=== PATIENT | female | born 1980 | race Caucasian/White ===

== ENCOUNTER → 2019-08-19 09:35 | Outpatient (CLI) | payer BC, SELFPAY ==
[2019-08-19 10:47] LABS: EXAGEN MAILED SPECIMEN
[2019-08-19 12:48] LABS: Color, Urine Yellow (Yellow); Glucose, Dipstick Normal (Normal); Ketone-Dipstick 5 mg/dl (Negative); Leukocyte Esterase-Dipstick 500 /ul (Negative); Nitrite-Dipstick Negative (Negative); Occult Blood-Urine Negative /ul (Negative); Protein-Dipstick 15 mg/dl (Negative); Urine Bilirubin Dipstick Negative (Negative); Urine Clarity Sl. Cloudy (Clear); Urine Urobilinogen Normal (Normal)
[2019-08-19 12:51] LABS: Absolute Lymphocyte Count 1.72 X10^3/uL (0.83-4.51); Absolute Neutrophil Count 5.3 X10^3/uL (2.0-7.7); Basophil# 0.03 X10^3/uL; Basophil% 0.4 % (0-1); Eosinophil# 0.09 X10^3/uL; Eosinophils% 1.2 % (0-5); Hematocrit 42.9 % (37-47); Hemoglobin 14.5 g/dL (12.0-15.0); Lymphocyte # 1.72 X10^3/ul (4.0); Lymphocyte % 22.3 % (19-41); Mean Corp Hgb Conc 33.8 g/dL (32-36); Mean Corpuscular Hgb 30.9 pg (27.0-32.0); Mean Corpuscular Volume 91.5 fL (81-99); Mean Platelet Vol. 10.2 fl (6.2-12.0); Monocyte# 0.49 X10^3/uL; Monocyte% 6.3 % (0-10); NRBC Flagged by Analyzer 0 % (0-5); Neutrophil # 5.33 X10^3/uL (2.7-7.7); Platelet Count 240 K/mm3 (150-450); RBC Distribution Width CV 12.1 % (11.6-14.6); RBC Distribution Width SD 40.3 fl (35.1-43.9); Red Blood Count 4.69 M/mm3 (4.2-5.4); White Blood Count 7.7 K/mm3 (4.4-11.0)
[2019-08-19 12:53] LABS: Protein, Urine (Random) 17.8 mg/dL (<11.9); Protein:Creat Ratio 56 mg/g CRE (0-200)
[2019-08-19 12:54] LABS: Erythrocyte Sedimentation Rate 4 mm/hr (0-20)
[2019-08-19 13:01] LABS: ALB/GLOB Ratio 1.2 RATIO (0.9-2.4); AST(SGOT) 16 U/L (15-37); Alanine Aminotransfer ALT/SGPT 36 U/L (13-56); Alkaline Phosphatase 68 U/L (45-117); Anion Gap 6 (5-15); BUN 12 mg/dL (7-18); BUN/Creat Ratio 15.4 RATIO (10-20); CRP < 2.90 mg/L (0.0-3.0); Calcium,Total 8.8 mg/dL (8.5-10.1); Chloride 106 mmol/L (98-107); Creatinine, Serum 0.78 mg/dL (0.55-1.02); EST Glomerular Filtration Rate 87 mL/min (>60); Est Glom Filt Rate - Afr Amer 105 mL/min (>60); Globulin 3.4 g/dL (2.2-4.2); Glucose 94 mg/dL (74-106); Potassium 4.1 mmol/L (3.5-5.1); Protein, Total 7.4 g/dL (6.4-8.2); Sodium Level 139 mmol/L (136-145)
[2019-08-19 16:25] LABS: Hepatitis B Surface Antibody Non-Reactive; Hepatitis B Surface Antigen Non-Reactive (Nonreactive); Hepatitis C Antibody Non-Reactive (Nonreactive)
== END ==
PROVIDERS: Family Provider Student in an Organized Health Care Education/Training Program; PCP Student in an Organized Health Care Education/Training Program; Referring Provider Internal Medicine Rheumatology; Visit Provider Internal Medicine Rheumatology
DX: M06.4 Inflammatory polyarthropathy (principal); R76.8 Other specified abnormal immunological findings in serum; G43.909 Migraine, unspecified, not intractable, without status migrainosus
CPT/HCPCS: 36415; 80053; 81002; 82570; 84156; 85025; 85652; 86140; 86706; 86803; 87340

== ENCOUNTER → 2019-11-25 | Outpatient (CLI) | payer BC, SELFPAY ==
[2019-11-25 15:40] LABS: Absolute Lymphocyte Count 1.66 X10^3/uL (0.83-4.51); Absolute Neutrophil Count 8.4 X10^3/uL (2.0-7.7); Basophil# 0.04 X10^3/uL; Basophil% 0.4 % (0-1); Eosinophil# 0.03 X10^3/uL; Eosinophils% 0.3 % (0-5); Hematocrit 42.4 % (37-47); Hemoglobin 14.3 g/dL (12.0-15.0); Lymphocyte # 1.66 X10^3/ul (4.0); Lymphocyte % 15.5 % (19-41); Mean Corp Hgb Conc 33.7 g/dL (32-36); Mean Corpuscular Hgb 30.6 pg (27.0-32.0); Mean Corpuscular Volume 90.8 fL (81-99); Mean Platelet Vol. 10.2 fl (6.2-12.0); Monocyte# 0.47 X10^3/uL; Monocyte% 4.4 % (0-10); NRBC Flagged by Analyzer 0 % (0-5); Neutrophil # 8.41 X10^3/uL (2.7-7.7); Neutrophil % 78.7 % (47-70); Platelet Count 313 K/mm3 (150-450); RBC Distribution Width CV 12.6 % (11.6-14.6); RBC Distribution Width SD 40.8 fl (35.1-43.9); Red Blood Count 4.67 M/mm3 (4.2-5.4); White Blood Count 10.7 K/mm3 (4.4-11.0)
[2019-11-25 16:02] LABS: ALB/GLOB Ratio 1.2 RATIO (0.9-2.4); AST(SGOT) 16 U/L (15-37); Alanine Aminotransfer ALT/SGPT 38 U/L (13-56); Albumin, Serum 4.2 g/dL (3.2-5.0); Alkaline Phosphatase 77 U/L (45-117); Anion Gap 9 (5-15); BUN 10 mg/dL (7-18); BUN/Creat Ratio 13.6 RATIO (10-20); Calcium,Total 9.1 mg/dL (8.5-10.1); Chloride 105 mmol/L (98-107); Creatinine, Serum 0.74 mg/dL (0.55-1.02); EST Glomerular Filtration Rate 92 mL/min (>60); Est Glom Filt Rate - Afr Amer 112 mL/min (>60); Globulin 3.6 g/dL (2.2-4.2); Glucose 88 mg/dL (74-106); Potassium 3.6 mmol/L (3.5-5.1); Protein, Total 7.8 g/dL (6.4-8.2); Sodium Level 137 mmol/L (136-145)
== END | disposition home or self-care (01) ==
LOC: MTLAB 12:54
PROVIDERS: PCP Student in an Organized Health Care Education/Training Program; Referring Provider Internal Medicine Rheumatology; Visit Provider Internal Medicine Rheumatology
DX: M05.79 Rheumatoid arthritis with rheumatoid factor of multiple sites without organ or systems involvement (principal); R76.8 Other specified abnormal immunological findings in serum; G43.909 Migraine, unspecified, not intractable, without status migrainosus; Z79.899 Other long term (current) drug therapy
CPT/HCPCS: 36415; 80053; 85025

== ENCOUNTER → 2020-02-02 | Outpatient (CLI) | payer BC, SELFPAY ==
[2020-02-02 18:09] LABS: Absolute Lymphocyte Count 2.17 X10^3/uL (0.83-4.51); Absolute Neutrophil Count 5.7 X10^3/uL (2.0-7.7); Basophil# 0.03 X10^3/uL; Basophil% 0.3 % (0-1); Eosinophil# 0.14 X10^3/uL; Eosinophils% 1.6 % (0-5); Hematocrit 39.5 % (37-47); Hemoglobin 13.2 g/dL (12.0-15.0); Lymphocyte # 2.17 X10^3/ul (4.0); Lymphocyte % 25.2 % (19-41); Mean Corp Hgb Conc 33.4 g/dL (32-36); Mean Corpuscular Hgb 31.1 pg (27.0-32.0); Mean Corpuscular Volume 92.9 fL (81-99); Mean Platelet Vol. 9.9 fl (6.2-12.0); Monocyte# 0.57 X10^3/uL; Monocyte% 6.6 % (0-10); NRBC Flagged by Analyzer 0 % (0-5); Neutrophil # 5.67 X10^3/uL (2.7-7.7); Platelet Count 289 K/mm3 (150-450); RBC Distribution Width CV 12.6 % (11.6-14.6); RBC Distribution Width SD 42.5 fl (35.1-43.9); Red Blood Count 4.25 M/mm3 (4.2-5.4); White Blood Count 8.6 K/mm3 (4.4-11.0)
[2020-02-02 18:57] LABS: ALB/GLOB Ratio 1.2 RATIO (0.9-2.4); AST(SGOT) 18 U/L (15-37); Alanine Aminotransfer ALT/SGPT 40 U/L (13-56); Albumin, Serum 3.9 g/dL (3.2-5.0); Alkaline Phosphatase 70 U/L (45-117); Anion Gap 6 (5-15); BUN 10 mg/dL (7-18); BUN/Creat Ratio 12.4 RATIO (10-20); Calcium,Total 8.8 mg/dL (8.5-10.1); Chloride 104 mmol/L (98-107); Creatinine, Serum 0.81 mg/dL (0.55-1.02); EST Glomerular Filtration Rate 83 mL/min (>60); Est Glom Filt Rate - Afr Amer 100 mL/min (>60); Globulin 3.2 g/dL (2.2-4.2); Glucose 92 mg/dL (74-106); Potassium 3.7 mmol/L (3.5-5.1); Protein, Total 7.1 g/dL (6.4-8.2); Sodium Level 139 mmol/L (136-145)
== END | disposition home or self-care (01) ==
PROVIDERS: PCP Student in an Organized Health Care Education/Training Program; Referring Provider Internal Medicine Rheumatology; Visit Provider Internal Medicine Rheumatology
DX: M05.79 Rheumatoid arthritis with rheumatoid factor of multiple sites without organ or systems involvement (principal); R76.8 Other specified abnormal immunological findings in serum; G43.909 Migraine, unspecified, not intractable, without status migrainosus; Z79.899 Other long term (current) drug therapy
CPT/HCPCS: 36415; 80053; 85025

== ENCOUNTER → 2020-04-02 | Outpatient (CLI) | payer BC, SELFPAY ==
[2020-04-02 17:42] LABS: Absolute Lymphocyte Count 2.18 X10^3/uL (0.83-4.51); Basophil# 0.03 X10^3/uL; Basophil% 0.4 % (0-1); Eosinophil# 0.09 X10^3/uL; Eosinophils% 1.1 % (0-5); Hematocrit 41.2 % (37-47); Hemoglobin 13.5 g/dL (12.0-15.0); Lymphocyte # 2.18 X10^3/ul (4.0); Lymphocyte % 27.3 % (19-41); Mean Corp Hgb Conc 32.8 g/dL (32-36); Mean Corpuscular Hgb 31.5 pg (27.0-32.0); Monocyte# 0.61 X10^3/uL; Monocyte% 7.6 % (0-10); NRBC Flagged by Analyzer 0 % (0-5); Neutrophil # 5.04 X10^3/uL (2.7-7.7); Neutrophil % 63.2 % (47-70); Platelet Count 298 K/mm3 (150-450); RBC Distribution Width CV 12.7 % (11.6-14.6); RBC Distribution Width SD 43.8 fl (35.1-43.9); Red Blood Count 4.29 M/mm3 (4.2-5.4)
[2020-04-02 18:33] LABS: ALB/GLOB Ratio 1.2 RATIO (0.9-2.4); AST(SGOT) 12 U/L (15-37); Alanine Aminotransfer ALT/SGPT 31 U/L (13-56); Albumin, Serum 3.9 g/dL (3.2-5.0); Alkaline Phosphatase 65 U/L (45-117); Anion Gap 4 (5-15); BUN 14 mg/dL (7-18); BUN/Creat Ratio 17.1 RATIO (10-20); Calcium,Total 8.3 mg/dL (8.5-10.1); Chloride 106 mmol/L (98-107); Creatinine, Serum 0.82 mg/dL (0.55-1.02); EST Glomerular Filtration Rate 81 mL/min (>60); Est Glom Filt Rate - Afr Amer 98 mL/min (>60); Globulin 3.2 g/dL (2.2-4.2); Glucose 79 mg/dL (74-106); Potassium 3.5 mmol/L (3.5-5.1); Protein, Total 7.1 g/dL (6.4-8.2); Sodium Level 138 mmol/L (136-145)
== END | disposition home or self-care (01) ==
LOC: MTLAB 16:35
PROVIDERS: PCP Student in an Organized Health Care Education/Training Program; Referring Provider Internal Medicine Rheumatology; Visit Provider Internal Medicine Rheumatology
DX: M05.79 Rheumatoid arthritis with rheumatoid factor of multiple sites without organ or systems involvement (principal); R76.8 Other specified abnormal immunological findings in serum; G43.909 Migraine, unspecified, not intractable, without status migrainosus; Z79.899 Other long term (current) drug therapy
CPT/HCPCS: 36415; 80053; 85025

== ENCOUNTER → 2020-06-02 | Outpatient (CLI) | payer BC, SELFPAY ==
[2020-06-02 16:19] LABS: Absolute Lymphocyte Count 1.75 X10^3/uL (0.83-4.51); Absolute Neutrophil Count 5.9 X10^3/uL (2.0-7.7); Basophil# 0.03 X10^3/uL; Basophil% 0.4 % (0-1); Eosinophil# 0.08 X10^3/uL; Hematocrit 40.2 % (37-47); Hemoglobin 13.5 g/dL (12.0-15.0); Lymphocyte # 1.75 X10^3/ul (4.0); Lymphocyte % 21.4 % (19-41); Mean Corp Hgb Conc 33.6 g/dL (32-36); Mean Corpuscular Hgb 31.7 pg (27.0-32.0); Mean Corpuscular Volume 94.4 fL (81-99); Mean Platelet Vol. 10.4 fl (6.2-12.0); Monocyte# 0.44 X10^3/uL; Monocyte% 5.4 % (0-10); NRBC Flagged by Analyzer 0 % (0-5); Neutrophil # 5.86 X10^3/uL (2.7-7.7); Neutrophil % 71.4 % (47-70); Platelet Count 365 K/mm3 (150-450); RBC Distribution Width CV 12.5 % (11.6-14.6); RBC Distribution Width SD 43.4 fl (35.1-43.9); Red Blood Count 4.26 M/mm3 (4.2-5.4); White Blood Count 8.2 K/mm3 (4.4-11.0)
[2020-06-02 16:45] LABS: ALB/GLOB Ratio 1.2 RATIO (0.9-2.4); AST(SGOT) 18 U/L (15-37); Alanine Aminotransfer ALT/SGPT 58 U/L (13-56); Albumin, Serum 3.8 g/dL (3.2-5.0); Alkaline Phosphatase 88 U/L (45-117); Anion Gap 5 (5-15); BUN 10 mg/dL (7-18); BUN/Creat Ratio 12.9 RATIO (10-20); Calcium,Total 8.8 mg/dL (8.5-10.1); Chloride 108 mmol/L (98-107); Creatinine, Serum 0.78 mg/dL (0.55-1.02); EST Glomerular Filtration Rate 86 mL/min (>60); Est Glom Filt Rate - Afr Amer 104 mL/min (>60); Globulin 3.2 g/dL (2.2-4.2); Glucose 118 mg/dL (74-106); Potassium 3.6 mmol/L (3.5-5.1); Sodium Level 139 mmol/L (136-145)
== END | disposition home or self-care (01) ==
LOC: MTLAB 11:46
PROVIDERS: PCP Student in an Organized Health Care Education/Training Program; Referring Provider Internal Medicine Rheumatology; Visit Provider Internal Medicine Rheumatology
DX: G43.909 Migraine, unspecified, not intractable, without status migrainosus (principal); R76.8 Other specified abnormal immunological findings in serum; M05.79 Rheumatoid arthritis with rheumatoid factor of multiple sites without organ or systems involvement; Z79.899 Other long term (current) drug therapy
CPT/HCPCS: 36415; 80053; 85025

== ENCOUNTER → 2020-06-30 | Outpatient (CLI) | payer BC, SELFPAY ==
[2020-06-30 15:36] LABS: ALB/GLOB Ratio 1.3 RATIO (0.9-2.4); AST(SGOT) 13 U/L (15-37); Alanine Aminotransfer ALT/SGPT 60 U/L (13-56); Alkaline Phosphatase 62 U/L (45-117); Anion Gap 6 (5-15); BUN 7 mg/dL (7-18); BUN/Creat Ratio 9.4 RATIO (10-20); Calcium,Total 8.9 mg/dL (8.5-10.1); Chloride 105 mmol/L (98-107); Creatinine, Serum 0.74 mg/dL (0.55-1.02); EST Glomerular Filtration Rate 91 mL/min (>60); Est Glom Filt Rate - Afr Amer 110 mL/min (>60); Globulin 3.1 g/dL (2.2-4.2); Glucose 84 mg/dL (74-106); Potassium 3.7 mmol/L (3.5-5.1); Protein, Total 7.1 g/dL (6.4-8.2); Sodium Level 139 mmol/L (136-145)
== END | disposition home or self-care (01) ==
LOC: MTLAB 12:13
PROVIDERS: PCP Student in an Organized Health Care Education/Training Program; Referring Provider Internal Medicine Rheumatology; Visit Provider Internal Medicine Rheumatology
DX: M05.79 Rheumatoid arthritis with rheumatoid factor of multiple sites without organ or systems involvement (principal); R76.8 Other specified abnormal immunological findings in serum; G43.909 Migraine, unspecified, not intractable, without status migrainosus; Z79.899 Other long term (current) drug therapy
CPT/HCPCS: 36415; 80053

== ENCOUNTER → 2020-09-13 11:53 | Outpatient (CLI) | payer BC, SELFPAY ==
[2020-09-13 15:23] LABS: Absolute Lymphocyte Count 1.58 X10^3/uL (0.83-4.51); Absolute Neutrophil Count 4.2 X10^3/uL (2.0-7.7); Basophil# 0.04 X10^3/uL; Basophil% 0.6 % (0-1); Eosinophil# 0.11 X10^3/uL; Eosinophils% 1.8 % (0-5); Hematocrit 41.1 % (37-47); Hemoglobin 13.2 g/dL (12.0-15.0); Lymphocyte # 1.58 X10^3/ul (4.0); Lymphocyte % 25.2 % (19-41); Mean Corp Hgb Conc 32.1 g/dL (32-36); Mean Corpuscular Hgb 29.2 pg (27.0-32.0); Mean Corpuscular Volume 90.9 fL (81-99); Mean Platelet Vol. 10.5 fl (6.2-12.0); Monocyte# 0.37 X10^3/uL; Monocyte% 5.9 % (0-10); NRBC Flagged by Analyzer 0 % (0-5); Neutrophil # 4.15 X10^3/uL (2.7-7.7); Neutrophil % 66.2 % (47-70); Platelet Count 266 K/mm3 (150-450); RBC Distribution Width CV 12.6 % (11.6-14.6); RBC Distribution Width SD 41.9 fl (35.1-43.9); Red Blood Count 4.52 M/mm3 (4.2-5.4); White Blood Count 6.3 K/mm3 (4.4-11.0)
[2020-09-13 16:15] LABS: ALB/GLOB Ratio 1.2 RATIO (0.9-2.4); AST(SGOT) 10 U/L (15-37); Alanine Aminotransfer ALT/SGPT 30 U/L (13-56); Albumin, Serum 3.8 g/dL (3.2-5.0); Alkaline Phosphatase 74 U/L (45-117); Anion Gap 6 (5-15); BUN 10 mg/dL (7-18); BUN/Creat Ratio 12.8 RATIO (10-20); Calcium,Total 8.9 mg/dL (8.5-10.1); Chloride 104 mmol/L (98-107); Creatinine, Serum 0.78 mg/dL (0.55-1.02); EST Glomerular Filtration Rate 86 mL/min (>60); Est Glom Filt Rate - Afr Amer 104 mL/min (>60); Globulin 3.2 g/dL (2.2-4.2); Glucose 93 mg/dL (74-106); Potassium 3.6 mmol/L (3.5-5.1); Sodium Level 138 mmol/L (136-145)
== END ==
PROVIDERS: PCP Student in an Organized Health Care Education/Training Program; Referring Provider Internal Medicine Rheumatology; Visit Provider Internal Medicine Rheumatology
DX: M05.70 Rheumatoid arthritis with rheumatoid factor of unspecified site without organ or systems involvement (principal); R76.8 Other specified abnormal immunological findings in serum; G43.909 Migraine, unspecified, not intractable, without status migrainosus; Z79.899 Other long term (current) drug therapy
CPT/HCPCS: 36415; 80053; 85025

== ENCOUNTER → 2020-11-10 16:45 | Outpatient (CLI) | payer BC, SELFPAY ==
[2020-11-10 17:46] LABS: Absolute Neutrophil Count 4.4 X10^3/uL (2.0-7.7); Basophil# 0.03 X10^3/uL; Basophil% 0.4 % (0-1); Eosinophil# 0.07 X10^3/uL; Hematocrit 39.4 % (37-47); Hemoglobin 12.5 g/dL (12.0-15.0); Lymphocyte % 27.6 % (19-41); Mean Corp Hgb Conc 31.7 g/dL (32-36); Mean Corpuscular Volume 91.4 fL (81-99); Mean Platelet Vol. 10.4 fl (6.2-12.0); Monocyte# 0.47 X10^3/uL; Monocyte% 6.8 % (0-10); NRBC Flagged by Analyzer 0 % (0-5); Neutrophil % 63.9 % (47-70); Platelet Count 309 K/mm3 (150-450); RBC Distribution Width CV 13.3 % (11.6-14.6); RBC Distribution Width SD 44.6 fl (35.1-43.9); Red Blood Count 4.31 M/mm3 (4.2-5.4); White Blood Count 6.9 K/mm3 (4.4-11.0)
[2020-11-10 18:43] LABS: ALB/GLOB Ratio 1.3 RATIO (0.9-2.4); AST(SGOT) 13 U/L (15-37); Alanine Aminotransfer ALT/SGPT 29 U/L (13-56); Albumin, Serum 4.1 g/dL (3.2-5.0); Alkaline Phosphatase 68 U/L (45-117); Anion Gap 6 (5-15); BUN 11 mg/dL (7-18); BUN/Creat Ratio 13.2 RATIO (10-20); Calcium,Total 8.6 mg/dL (8.5-10.1); Chloride 104 mmol/L (98-107); Creatinine, Serum 0.83 mg/dL (0.55-1.02); EST Glomerular Filtration Rate 79 mL/min (>60); Est Glom Filt Rate - Afr Amer 96 mL/min (>60); Globulin 3.1 g/dL (2.2-4.2); Glucose 94 mg/dL (74-106); Potassium 3.5 mmol/L (3.5-5.1); Protein, Total 7.2 g/dL (6.4-8.2); Sodium Level 139 mmol/L (136-145)
== END ==
PROVIDERS: PCP Student in an Organized Health Care Education/Training Program; Referring Provider Internal Medicine Rheumatology; Visit Provider Internal Medicine Rheumatology
DX: M05.70 Rheumatoid arthritis with rheumatoid factor of unspecified site without organ or systems involvement (principal); R76.8 Other specified abnormal immunological findings in serum; G43.909 Migraine, unspecified, not intractable, without status migrainosus; Z79.899 Other long term (current) drug therapy
CPT/HCPCS: 36415; 80053; 85025

== ENCOUNTER → 2021-02-09 15:03 | Outpatient (CLI) | payer BC, SELFPAY ==
[2021-02-09 17:39] LABS: Absolute Lymphocyte Count 1.68 X10^3/uL (0.83-4.51); Absolute Neutrophil Count 6.1 X10^3/uL (2.0-7.7); Basophil# 0.03 X10^3/uL; Basophil% 0.4 % (0-1); Eosinophil# 0.04 X10^3/uL; Eosinophils% 0.5 % (0-5); Hematocrit 35.7 % (37-47); Hemoglobin 11.5 g/dL (12.0-15.0); Lymphocyte # 1.68 X10^3/ul (0.83-4.51); Lymphocyte % 20.1 % (19-41); Mean Corp Hgb Conc 32.2 g/dL (32-36); Mean Corpuscular Hgb 28.5 pg (27.0-32.0); Mean Corpuscular Volume 88.6 fL (81-99); Mean Platelet Vol. 9.6 fl (6.2-12.0); Monocyte# 0.49 X10^3/uL; Monocyte% 5.9 % (0-10); NRBC Flagged by Analyzer 0 % (0-5); Neutrophil # 6.07 X10^3/uL (2.7-7.7); Neutrophil % 72.7 % (47-70); Platelet Count 312 K/mm3 (150-450); RBC Distribution Width CV 14.2 % (11.6-14.6); RBC Distribution Width SD 45.5 fl (35.1-43.9); Red Blood Count 4.03 M/mm3 (4.2-5.4); White Blood Count 8.3 K/mm3 (4.4-11.0)
[2021-02-09 17:54] LABS: ALB/GLOB Ratio 1.3 RATIO (0.9-2.4); AST(SGOT) 14 U/L (15-37); Alanine Aminotransfer ALT/SGPT 39 U/L (13-56); Alkaline Phosphatase 58 U/L (45-117); Anion Gap 5 (5-15); BUN 11 mg/dL (7-18); BUN/Creat Ratio 13.1 RATIO (10-20); Calcium,Total 8.6 mg/dL (8.5-10.1); Chloride 106 mmol/L (98-107); Creatinine, Serum 0.84 mg/dL (0.55-1.02); EST Glomerular Filtration Rate 79 mL/min (>60); Est Glom Filt Rate - Afr Amer 95 mL/min (>60); Globulin 3.1 g/dL (2.2-4.2); Glucose 90 mg/dL (74-106); Potassium 3.7 mmol/L (3.5-5.1); Protein, Total 7.1 g/dL (6.4-8.2); Sodium Level 139 mmol/L (136-145)
== END ==
PROVIDERS: PCP Student in an Organized Health Care Education/Training Program; Referring Provider Internal Medicine Rheumatology; Visit Provider Internal Medicine Rheumatology
DX: M05.70 Rheumatoid arthritis with rheumatoid factor of unspecified site without organ or systems involvement (principal); R76.8 Other specified abnormal immunological findings in serum; G43.909 Migraine, unspecified, not intractable, without status migrainosus; Z79.899 Other long term (current) drug therapy
CPT/HCPCS: 36415; 80053; 85025

== ENCOUNTER → 2021-05-10 08:24 | Outpatient (CLI) | payer BC, SELFPAY ==
[2021-05-10 09:59] LABS: Absolute Lymphocyte Count 1.31 X10^3/uL (0.83-4.51); Absolute Neutrophil Count 3.7 X10^3/uL (2.0-7.7); Basophil# 0.02 X10^3/uL; Basophil% 0.4 % (0-1); Eosinophil# 0.06 X10^3/uL; Eosinophils% 1.1 % (0-5); Hematocrit 42.1 % (37-47); Hemoglobin 13.4 g/dL (12.0-15.0); Lymphocyte # 1.31 X10^3/ul (0.83-4.51); Lymphocyte % 24.3 % (19-41); Mean Corp Hgb Conc 31.8 g/dL (32-36); Mean Corpuscular Volume 87.9 fL (81-99); Mean Platelet Vol. 10.2 fl (6.2-12.0); Monocyte# 0.32 X10^3/uL; Monocyte% 5.9 % (0-10); NRBC Flagged by Analyzer 0 % (0-5); Neutrophil # 3.66 X10^3/uL (2.7-7.7); Neutrophil % 67.7 % (47-70); Platelet Count 269 K/mm3 (150-450); RBC Distribution Width CV 15.2 % (11.6-14.6); Red Blood Count 4.79 M/mm3 (4.2-5.4); White Blood Count 5.4 K/mm3 (4.4-11.0)
[2021-05-10 10:19] LABS: ALB/GLOB Ratio 1.2 RATIO (0.9-2.4); AST(SGOT) 33 U/L (15-37); Alanine Aminotransfer ALT/SGPT 63 U/L (13-56); Alkaline Phosphatase 67 U/L (45-117); Anion Gap 4 (5-15); BUN 14 mg/dL (7-18); BUN/Creat Ratio 17.9 RATIO (10-20); Chloride 105 mmol/L (98-107); Creatinine, Serum 0.78 mg/dL (0.55-1.02); EST Glomerular Filtration Rate 85 mL/min (>60); Est Glom Filt Rate - Afr Amer 103 mL/min (>60); Globulin 3.3 g/dL (2.2-4.2); Glucose 112 mg/dL (74-106); Potassium 3.7 mmol/L (3.5-5.1); Protein, Total 7.3 g/dL (6.4-8.2); Sodium Level 137 mmol/L (136-145)
== END ==
PROVIDERS: PCP Student in an Organized Health Care Education/Training Program; Referring Provider Internal Medicine Rheumatology; Visit Provider Internal Medicine Rheumatology
DX: M05.70 Rheumatoid arthritis with rheumatoid factor of unspecified site without organ or systems involvement (principal); R76.8 Other specified abnormal immunological findings in serum; G43.909 Migraine, unspecified, not intractable, without status migrainosus; Z79.899 Other long term (current) drug therapy
CPT/HCPCS: 36415; 80053; 85025

== ENCOUNTER → 2021-06-14 12:46 | Outpatient (CLI) | payer BC, SELFPAY ==
[2021-06-14 15:58] LABS: AST(SGOT) 7 U/L (15-37); Alanine Aminotransfer ALT/SGPT 27 U/L (13-56); Albumin, Serum 3.6 g/dL (3.2-5.0); Alkaline Phosphatase 68 U/L (45-117); Anion Gap 9 (5-15); BUN 11 mg/dL (7-18); BUN/Creat Ratio 14.5 RATIO (10-20); Calcium,Total 8.8 mg/dL (8.5-10.1); Chloride 105 mmol/L (98-107); Creatinine, Serum 0.76 mg/dL (0.55-1.02); EST Glomerular Filtration Rate 88 mL/min (>60); Est Glom Filt Rate - Afr Amer 107 mL/min (>60); Globulin 3.6 g/dL (2.2-4.2); Glucose 90 mg/dL (74-106); Potassium 3.8 mmol/L (3.5-5.1); Protein, Total 7.2 g/dL (6.4-8.2); Sodium Level 140 mmol/L (136-145)
== END ==
PROVIDERS: PCP Student in an Organized Health Care Education/Training Program; Referring Provider Internal Medicine Rheumatology; Visit Provider Internal Medicine Rheumatology
DX: M05.70 Rheumatoid arthritis with rheumatoid factor of unspecified site without organ or systems involvement (principal); R76.8 Other specified abnormal immunological findings in serum; G43.909 Migraine, unspecified, not intractable, without status migrainosus; Z79.899 Other long term (current) drug therapy
CPT/HCPCS: 36415; 80053

== ENCOUNTER 2021-12-20 12:45 | Outpatient (CLI) | payer BC, SELFPAY ==
[2021-12-20 15:13] LABS: Absolute Lymphocyte Count 1.52 X10^3/uL (0.83-4.51); Absolute Neutrophil Count 4.7 X10^3/uL (2.0-7.7); Basophil# 0.03 X10^3/uL; Basophil% 0.4 % (0-1); Eosinophil# 0.13 X10^3/uL; Eosinophils% 1.9 % (0-5); Hematocrit 43.1 % (37-47); Hemoglobin 14.5 g/dL (12.0-15.0); Lymphocyte # 1.52 X10^3/ul (0.83-4.51); Mean Corp Hgb Conc 33.6 g/dL (32-36); Mean Corpuscular Hgb 30.5 pg (27.0-32.0); Mean Corpuscular Volume 90.5 fL (81-99); Mean Platelet Vol. 10.4 fl (6.2-12.0); Monocyte# 0.49 X10^3/uL; Monocyte% 7.1 % (0-10); NRBC Flagged by Analyzer 0 % (0-5); Neutrophil # 4.73 X10^3/uL (2.7-7.7); Neutrophil % 68.3 % (47-70); Platelet Count 252 K/mm3 (150-450); RBC Distribution Width CV 11.7 % (11.6-14.6); Red Blood Count 4.76 M/mm3 (4.2-5.4); White Blood Count 6.9 K/mm3 (4.4-11.0)
[2021-12-20 15:35] LABS: ALB/GLOB Ratio 1.3 RATIO (0.9-2.4); AST(SGOT) 15 U/L (15-37); Alanine Aminotransfer ALT/SGPT 36 U/L (13-56); Alkaline Phosphatase 73 U/L (45-117); Anion Gap 4 (5-15); BUN 9 mg/dL (7-18); BUN/Creat Ratio 12.4 RATIO (10-20); Calcium,Total 8.6 mg/dL (8.5-10.1); Chloride 106 mmol/L (98-107); Creatinine, Serum 0.73 mg/dL (0.55-1.02); EST Glomerular Filtration Rate 92 mL/min (>60); Est Glom Filt Rate - Afr Amer 112 mL/min (>60); Globulin 3.1 g/dL (2.2-4.2); Glucose 101 mg/dL (74-106); Potassium 3.5 mmol/L (3.5-5.1); Protein, Total 7.1 g/dL (6.4-8.2); Sodium Level 138 mmol/L (136-145)
== END 2021-12-20 23:59 | disposition home or self-care (01) ==
LOC: MTLAB 12:46
PROVIDERS: PCP Student in an Organized Health Care Education/Training Program; Referring Provider Internal Medicine Rheumatology; Visit Provider Internal Medicine Rheumatology
DX: M05.70 Rheumatoid arthritis with rheumatoid factor of unspecified site without organ or systems involvement (principal); R76.8 Other specified abnormal immunological findings in serum; G43.909 Migraine, unspecified, not intractable, without status migrainosus; Z79.899 Other long term (current) drug therapy
CPT/HCPCS: 36415; 80053; 85025

== ENCOUNTER → 2025-02-18 | Outpatient (CLI) | payer BC, SELFPAY ==
[2025-02-21 15:08] LABS: G6PD Quant Test 261 (127-427); Red Blood Cell Count Test/G6PD 4.75 x10E6/uL (3.77-5.28)
== END | disposition home or self-care (01) ==
LOC: MTLAB 16:35
PROVIDERS: PCP Student in an Organized Health Care Education/Training Program; Referring Provider Internal Medicine Rheumatology; Visit Provider Internal Medicine Rheumatology
DX: M05.79 Rheumatoid arthritis with rheumatoid factor of multiple sites without organ or systems involvement (principal); R76.8 Other specified abnormal immunological findings in serum
CPT/HCPCS: 36415; 82955